=== PATIENT | male | born 1935 | race Caucasian/White ===

== ENCOUNTER 2017-12-21 07:14 | Emergency (ER) | payer OTHER, MEDICAID | END 2017-12-21 08:02 | disposition home or self-care (01) | LOC: E/R 07:14 | DX: R05 Cough (principal); R40.2142 Coma scale, eyes open, spontaneous, at arrival to emergency department; R40.2252 Coma scale, best verbal response, oriented, at arrival to emergency department; R40.2362 Coma scale, best motor response, obeys commands, at arrival to emergency department; I10 Essential (primary) hypertension | CPT/HCPCS: 71045; 99283-25 ==